=== PATIENT | female | born 1980 | race Caucasian/White ===

== ENCOUNTER → 2017-05-21 | Outpatient (CLI) | payer BC ==
[~2017-05-21] MED LIST: SYNTHROID0.025 MG PO
--- NOTE | 2017-05-21 18:37 | RADIOLOGY REPORT PS360 ---
CHEST(2 VIEWS-NOT PORTABLE) Ordering physician: Yolanda Cordoba APRN Age: 37 years Female INDICATION: chest symptomsBRONCHOPNEUMONIA PROCEDURE: CHEST(2 VIEWS-NOT PORTABLE) FINDINGS: PA lateral chest Lungs well expanded. Nothing definitely acute. There is slight coarsening lung markings toward the right infrahilar region towards right lung base, with compared to the left. Suspect is more likely reflects vascular markings along with minor chronic changes & overlying breast density accentuated these markings. No discrete acute infiltrate; however if symptoms progress consider follow-up. No pleural effusion Heart normal size. Normal pulmonary vascularity. Hilar and mediastinal structures appear satisfactory. Chest wall unremarkable. T-spine intact. IMPRESSION ----- . Nothing definitely acute. Upper normal lung markings right infrahilar towards RLL. Suspect More likely reflecting minor chronic changes. No discrete convincing infiltrate. Clinical correlation required. If symptoms progress may warrant follow-up
== END ==
LOC: RAD 16:21
DX: J18.0 Bronchopneumonia, unspecified organism (principal)

== ENCOUNTER → 2017-07-05 | Outpatient (CLI) | payer BC ==
[~2017-07-05] MED LIST changes: +BREO ELLIPTA1 POW IH; +DOXYCYCLINE HY100 M4 PO; +IPRATROPIUM BROM3 M1 IH; +LEVAQUIN500 MG PO; +METFORMIN 500M500 M1 PO; +MONTELUKAST SOD10 MG PO; +PREDNISONE 20MG20 MG PO; +PROAIR HFA0.09 MG/AC IH
--- NOTE | 2017-07-05 16:05 | RADIOLOGY REPORT PS360 ---
CHEST(2 VIEWS-NOT PORTABLE) HISTORY: COUGH, SOB ORDERING PHYSICIAN: MARKUS MANZO APRN PATIENT AGE: 37 years COMPARISON: 05/21/2017 FINDINGS: The cardiomediastinal silhouette and pulmonary vascularity are within normal limits. The lungs are clear without infiltrates, suspicious nodules, or pleural effusions. No acute bony abnormalities. IMPRESSION: Negative chest, no acute finding
--- NOTE | 2017-07-05 16:07 | RADIOLOGY REPORT PS360 ---
EXAM: THORACIC SPINE-3V SWIMMERS HISTORY: MID BACK PAIN COMPARISON: None FINDINGS: Normal alignment. No fracture or dislocation. No lytic or blastic change. No significant degenerative change. The disc spaces are preserved. There is minimal upper thoracic curvature convex left and lower thoracic curvature convex right. There is minimal endplate irregularity of the midthoracic spine and minimal osteophyte formation. IMPRESSION: Mild degenerative changes with scoliosis, no acute finding
== END ==
LOC: RAD 15:15
DX: R06.02 Shortness of breath (principal); R05 Cough; M54.6 Pain in thoracic spine